=== PATIENT | male | born 1970 | race Caucasian/White ===

== ENCOUNTER → 2024-07-28 | Outpatient (CLI) | payer BC ==
[2024-07-28 12:56] LABS: ALT 45 U/L (10-49); AST 26 U/L (14-35); Chol/HDL Ratio 3.42 Ratio; LDL Cholesterol,Calculated 61.6 mg/dL (0.0-131.0); VLDL Calculation 18.42 mg/dL (5.00-40.00)
== END | disposition home or self-care (01) ==
LOC: LABWHC1 08:07
PROVIDERS: ATTEND Internal Medicine
DX: E78.2 Mixed hyperlipidemia (principal)
CPT/HCPCS: 36415; 80061; 84450; 84460